=== PATIENT | female | born 1985 | race Caucasian/White ===

== ENCOUNTER 2016-10-24 16:04 | Emergency (ER) | payer MEDICAID ==
[~2016-10-24 16:04] MED LIST: ABILIFY10 M1 PO; ADVIL200 M1 PO; ALBUTEROL I0.5 ML/EA AERO NEB; ALBUTEROL17 GM INH; ALLERGY PILL PO; AMBIEN PAK5 MG PO; AMBIEN10 MG PO; AMBIEN5 MG; AMBIEN5 MG PO; AMITRIPTYLINE H50 MG PO; ANEXSIA 7.5/3251 TAB PO; ANIMAL CHEWS1 EACH PO; ANTIDEPRESSANT; APRISO0.375 G1 PO; ATENOLOL25 M1 PO; BACTRIM DS TABL1 TAB PO; BENTYL20 M1 PO; BENTYL20 MG; BP PILL PO; BUSPAR5 MG PO; BUSPIRONE HCL10 M2 PO; BUTALB-ACETAMI1 EAC4 PO; CEFTIN500 M1 PO; CEPHALEXIN MON500 MG PO; CIPRO500 MG PO; CLINDAMYCIN HC300 M2 PO; CLINDAMYCIN PV; CLONAZEPAM0.5 M2 PO; COMPAZINE10 M; COMPAZINE5 MG; COMPOUND PR; CYCLOBENZAPRINE10 M1 PO; CYCLOBENZAPRINE5 M1 PO; CYMBALTA30 MG; CYMBALTA60 MG; DARVOCET; DARVOCET-N 1001 EA PO; DARVOCET-N 1001 EACH PO; DARVOCET-N 1001 TAB; DARVOCET-N 1001 TAB PO; DIFLUCAN150 MG PO; DIPHENOXYLATE-1 EAC1 PO; ELAVIL50 MG PO; ENTOCORT EC3 M1 PO; ESTRACE PO; ESTRACE0.5 MG PO; ESTRACE1 M3 PO; ESTRATEST TABLE1 TAB PO; ESTROGEN CREAM; FLAGYL500 MG PO; FLECTOR1 EAC1 TD; FLINTSTONE1 TAB.CHEW PO; GLUCOPHAGE500 M3 PO; HORMONE PILL; IMITREX25 MG PO; IMODIUM2 MG PO; INDERAL LA60 MG PO; IRON1 TA1; KYTRIL1 MG; LEVOCETIRIZINE D5 MG PO; LIDOPATCH1 EAC1 TP; LORTAB 7.5/5001 TAB PO; LYRICA50 MG/CAP PO; MACROBID 100 M100 M1 PO; MACROBID 100 M100 MG PO; MACROBID100 MG/CAP PO; METAMUCIL PACK3.4 G1 PO; MIDRIN1 CAP PO; MOTRIN800 MG; NAPRELAN500 MG; NEW MED PO; NEXIUM40 M1 PO; NEXIUM40 MG PO; NO CURRENT MEDS; NORCO 5-325 TA1 EACH PO; NORCO 5/325 TAB1 TAB PO; NORCO 5/3251 TA1 PO; NORCO 7.5-3251 EACH PO; OMEPRAZOLE20 MG; OTC SLEEP AIDE; PEPCID; PERCOCET 5-3251 EACH PO; PERCOCET 5/3251 TAB PO; PHENERGAN25 MG; PREMARIN30 GM OTHER; PRENATAL1 TAB; PRENATAL1 TAB PO; PREVACID15 M1 PO; PRILOSEC OTC20 MG; PROAMATINE2.5 MG PO; PROMETHAZINE HC25 M3 PO; PROVENTIL17 GM; REGLAN10 MG PO; ROBAXIN500 M1 PO; ROBAXIN750 MG/TA1 PO; ROXICODONE5 MG PO; SEASONIQUE1 BLIST PA; SEROQUEL100 M2 PO; SINGULAIR; STOOL SOFTENER1 EACH PO; SYMBICORT 16010.2 GM; TESSALON PERLE100 M1 PO; TORADOL10 MG PO; TRAZODONE HCL100 MG PO; TRAZODONE50 MG PO; TYLENOL EXTRA500 M1 PO; TYLENOL WITH C1 EACH PO; VIBRAMYCIN100 MG; VICODIN 5/500 T1 TAB PO; VIIBRYD40 M1 PO; VISTARIL50 MG; VISTARIL50 MG PO; VIVELLE DO TD; XANAX0.5 M1 PO; XANAX0.5 MG PO; XYREM500 MG/1 M PO; ZITHROMAX250MG Z-PAK PO; ZOFRAN ODT4 MG PO; ZOFRAN ODT4 MG/UDTAB PO; ZOFRAN4 M2 PO; ZOFRAN4 MG; ZOFRAN4 MG PO; ZOFRAN8 MG; ZOLOFT; ZOLOFT100 MG; ZOLOFT50 MG; ZYRTEC10 M7 PO
[2016-10-24 16:58] LABS: BASO % 0.3 % (0-2); EOS % 1.3 % (0-7); EOSINOPHIL ABSOLUTE COUNT 0.1 tho/cmm (0.0-0.7); HCT-HEMATOCRIT 38.1 % (34.0-49.0); HGB-HEMOGLOBIN 13.3 gm/dl (12.0-15.5); IMMATURE GRANULOCYTES ABSOLUTE 0.02 tho/cmm (0-0.03); IMMATURE GRANULOCYTES PERCENT 0.2 % (0-0.3); LYMPH % 31.7 % (20-45); LYMPH ABSOLUTE COUNT 2.8 tho/cmm (0.8-4.5); MCH (MEAN CORPUSCULAR HGB) 28.5 pg (28.0-32.0); MCHC MEAN CORPUSCULAR HGB CONC 34.9 % (32.0-36.0); MCV (MEAN CELL VOLUME) 81.8 fl (82.0-96.0); MEAN PLATELET VOLUME 9.3 cmc (9.4-12.4); MONO % 4.2 % (0-12); MONOCYTE ABSOLUTE COUNT 0.4 tho/cmm (0.0-1.2); NEUTROPHIL ABSOLUTE COUNT 5.6 tho/cmm (1.6-8.0); NEUTROPHIL-AUTOMATED 5.6 tho/cmm (1.6-8.0); NEUTROPHILS % 62.3 % (40-80); PLATELET COUNT 300 tho/cmm (150-450); RED BLOOD COUNT 4.66 mil/cmm (4.00-5.20); RED CELL DISTRIBUTION WIDTH 13.5 % (12.4-16.4)
[2016-10-24 17:12] LABS: ANION GAP 15 mmol/L (0-20); BLOOD UREA NITROGEN 10 mg/dl (6-24); CALCIUM 9.3 mg/dl (8.5-10.5); CARBON DIOXIDE-VENOUS 26 mmol/L (22-32); CHLORIDE 104 mmol/l (96-110); CREATININE 0.72 mg/dl (0.50-1.10); GLUCOSE 100 mg/dL (70-110); MAGNESIUM 1.9 mg/dl (1.8-2.6); POTASSIUM 3.5 mmol/L (3.7-5.1); SODIUM 141 mmol/L (135-145); eGFR VALUE FOR BLACK >90 mL/Min
[2016-10-24] MEDS ORDERED: PRILOSEC OTC20 M1 PO (17:25)
[2016-10-24] MEDS ORDERED: SEROQUEL200 M2 PO (17:25)
[2016-10-24] MEDS ORDERED: NORCO 5-325 TA1 EACH PO (17:38)
== END 2016-10-24 17:55 ==
LOC: EDMED 16:04
PROVIDERS: Emergency Medicine
DX: R07.89 Other chest pain (principal); R00.2 Palpitations; J45.909 Unspecified asthma, uncomplicated; F17.200 Nicotine dependence, unspecified, uncomplicated; Z90.49 Acquired absence of other specified parts of digestive tract; Z90.710 Acquired absence of both cervix and uterus